=== PATIENT | female | born 1980 | race African-American/Black ===

== ENCOUNTER 2020-05-29 18:52 | Emergency (ER) | payer SELFPAY ==
[2020-05-29 18:57] VITALS: BMI 25.7
--- NOTE | 2020-05-29 18:57 | PDOC ---
Rapid Medical Evaluation Chief Complaint: Psychiatric Time Seen by Provider: 05/29/20 18:53 Medical Evaluation: 05/29/20 18:55 CC: palpitation, weight, increased sleep, and feels slightly depressed but denies any psych hx, hx asthma Exam: tachy, hypertensive Plan: Labs, urine, ekg,
[2020-05-29 19:36] LABS: BASO % 0.7 % (0-2.0); EOS % 2.2 % (0-4.5); HEMATOCRIT 34.2 % (32.4-45.2); HEMOGLOBIN 11.1 GM/dL (10.7-15.3); LYMPH % 25.5 % (8-40); MCH 27.5 pg (25.7-33.7); MCHC 32.4 g/dl (32.0-36.0); MEAN PLT VOLUME 7.6 fl (7.5-11.1); MONO % 11.1 % (3.8-10.2); NEUT % 60.5 % (42.8-82.8); PLATELET COUNT 414 K/MM3 (134-434); RBC 4.02 M/mm3 (3.60-5.2); RDW 19.4 % (11.6-15.6); WHITE BLOOD COUNT 6.5 K/mm3 (4.0-10.0)
[2020-05-29 19:51] LABS: EPI CELLS 35 /uL (0-25.1); HYALINE CASTS 2 /uL (0-3.1); PH,URINE 6.5 (5.0-8.0); URINE APPEARANCE CLOUDY; URINE BACTERIA 715 /uL (0-1359); URINE BILIRUBIN NEGATIVE (NEGATIVE); URINE COLOR RED; URINE GLUCOSE (UA) NEGATIVE (NEGATIVE); URINE KETONE 3+ (NEGATIVE); URINE LEUK ESTERASE TRACE (NEGATIVE); URINE NITRITE NEGATIVE (NEGATIVE); URINE PROTEIN 2+ (NEGATIVE); URINE RBC 1504 /uL (0-23.9); URINE WBC 37 /uL (0-25.8)
[2020-05-29 19:52] LABS: HCG,QUALITATIVE URINE Negative
[2020-05-29 20:01] LABS: COCAINE, UR NEGATIVE ng/ml (CUTOFF=300); METHADONE, UR NEGATIVE ng/ml (CUTOFF=300); OPIATES, URI NEGATIVE ng/ml (CUTOFF=300); PHENCYCLIDINE,URINE NEGATIVE ng/ml (CUTOFF=25); URINE AMPHETAMINES NEGATIVE ng/ml (CUTOFF=500)
[2020-05-29 20:02] LABS: URINE BARBITURATES NEGATIVE ng/ml (CUTOFF=200); URINE BENZODIAZEPINES NEGATIVE ng/ml (CUTOFF=200)
[2020-05-29] MEDS ORDERED: hydrOXYzine PAMOATE 50 MG CAPSULE (FP) PO ONE (20:02)
--- NOTE | 2020-05-29 20:12 | PDOC ---
History of Present Illness - General Chief Complaint: Psychiatric Stated Complaint: PALIPATATIONS Time Seen by Provider: 05/29/20 18:53 History Source: Patient Exam Limitations: Clinical Condition - History of Present Illness Initial Comments: 05/29/20 20:07 Patient with past medical history of asthma brought in by ambulance with complaint of over 1 month history of intermittent panic attacks which happen sporadically of unknown etiology. Patient reported she believed in bed and started having panic attack. Denies any suicidal or homicidal ideation. Denies any family problems or any problem causing her panic attacks. Patient reported panic attack last for over an hour when it happens and resolved. Reported having palpitations, uneasiness with intermittent shortness of breath. Denies numbness or tingling sensation, chest pain, nausea, vomiting. Denies any other symptoms. Denies past psych history or history of anxieties. Is this a multiple visit Asthma Patient?: No Timing/Duration: intermittent, other (1 month) Past History - Medical History Allergies/Adverse Reactions: Allergies Allergy/AdvReac Type Severity Reaction Status Date / Time No Known Allergies Allergy Verified 05/29/20 18:57 Home Medications: Ambulatory Orders hydrOXYzine PAMOATE [Vistaril -] 25 mg PO Q8H PRN #21 capsule 05/29/20 Asthma: Yes COPD: No Other medical history: abnormal pap - Psycho-Social/Smoking History Smoking History: Never smoked - Substance Abuse Hx (Audit-C & DAST Scrn) How often the patient has a drink containing alcohol: Never Score: In Men: 4 or > Positive; In Women: 3 or > Positive: 0 Screen Result (Pos requires Nsg. Audit-10AR): Negative Review of Systems - Review of Systems Able to Perform ROS?: Yes Is the patient limited Kinyarwanda proficient: No Constitutional: No: Chills, Fever, Malaise HEENTM: No: Symptoms Reported, See HPI, Eye Pain, Blurred Vision, Tearing, Recent change in vision, Double Vision, Cataracts, Ear Pain, Ocular Prothesis, Ear Discharge, Nose Pain, Nose Congestion, Tinnitus, Nose Bleeding, Hearing Loss, Throat Pain, Throat Swelling, Mouth Pain, Dental Problems, Difficulty Swallowing, Mouth Swelling, Other Respiratory: No: Symptoms reported, See HPI, Cough, Orthopnea, Shortness of Breath, SOB with Exertion, SOB at Rest, Stridor, Wheezing, Productive cough, Hemoptysis, Other Cardiac (ROS): Yes: Symptoms Reported, See HPI, Palpitations. No: Chest Pain, Edema, Irregular Heart Rate, Lightheadedness, Syncope, Chest Tightness ABD/GI: No: Symptoms Reported, Nausea, Vomiting Musculoskeletal: No: Symptoms Reported Integumentary: No: Symptoms Reported Neurological: No: Symptoms reported, See HPI, Headache, Numbness, Paresthesia, Pre-Existing Deficit, Weakness, Unsteady Gait, Dizziness Psychiatric: Yes: Anxiety, Sleep Pattern Change. No: Frequent Crying, Stressors, Emotional Problems, Mood Swings, Change in Appetite All Other Systems: Reviewed and Negative *Physical Exam - Vital Signs Last Vital Signs Temp Pulse Resp BP Pulse Ox 98.9 F 122 H 18 178/107 H 98 05/29/20 18:53 05/29/20 18:53 05/29/20 18:53 05/29/20 18:53 05/29/20 18:53 - Physical Exam 05/29/20 20:12 GENERAL: Well developed, well nourished. Awake and alert. No acute distress. HEENT: Normocephalic, atraumatic. PERRLA, EOMI. No conjunctival pallor. Sclera are non-icteric. Moist mucous membranes. Oropharynx is clear. NECK: Supple. Full ROM. CARDIOVASCULAR: Regular rate and rhythm. No murmurs, rubs, or gallops. Distal pulses are 2+ and symmetric. PULMONARY: No evidence of respiratory distress. Lungs clear to auscultation bilaterally. No wheezing, rales or rhonchi. ABDOMINAL: Soft. Non-tender. Non-distended. No rebound or guarding. No organomegaly. Normoactive bowel sounds. MUSCULOSKELETAL Normal range of motion at all joints. SKIN: Warm and dry. Normal capillary refill. No rashes. No jaundice. NEUROLOGICAL: Alert, awake, appropriate. Gait is normal without ataxia. PSYCHIATRIC: Cooperative. Good eye contact. Appropriate mood General Appearance: Yes: Nourished, Appropriately Dressed, Other (Anxious). No: Apparent Distress ED Treatment Course - LABORATORY CBC & Chemistry Diagram: 05/29/20 19:19 05/29/20 19:19 - ADDITIONAL ORDERS Additional order review: Laboratory Results 05/29/20 05/29/20 19:19 19:19 Urine Color Red Urine Appearance Cloudy Urine pH 6.5 Ur Specific [place] 1.019 Urine Protein 2+ H Urine Glucose (UA) Negative Urine Ketones 3+ H Urine Blood 3+ H Urine Nitrite Negative Urine Bilirubin Negative Urine Urobilinogen 1.0 Ur Leukocyte Esterase Trace Urine WBC (Auto) 37 Urine RBC (Auto) 1504 Urine Casts (Auto) 2 U Epithel Cells (Auto) 35 Urine Bacteria (Auto) 715 Urine HCG, Qual Negative Opiates Screen Negative Methadone Screen Negative Barbiturate Screen Negative Phencyclidine Screen Negative Ur Amphetamines Screen Negative MDMA (Ecstasy) Screen Negative Benzodiazepines Screen Negative Cocaine Screen Negative U Marijuana (THC) Screen Negative 05/29/20 19:19 RBC 4.02 MCV 85.0 MCHC 32.4 RDW 19.4 H MPV 7.6 Neutrophils % 60.5 Lymphocytes % 25.5 Monocytes % 11.1 H Eosinophils % 2.2 Basophils % 0.7 Medical Decision Making - Medical Decision Making 05/29/20 20:09 Patient with past medical history of asthma brought in by ambulance with complaint of over 1 month history of intermittent panic attacks which happen sporadically of unknown etiology. Patient reported she believed in bed and started having panic attack. Denies any suicidal or homicidal ideation. Denies any family problems or any problem causing her panic attacks. Patient reported panic attack last for over an hour when it happens and resolved. Reported having palpitations, uneasiness with intermittent shortness of breath. Denies numbness or tingling sensation, chest pain, nausea, vomiting. Denies any other symptoms. Denies past psych history or history of anxieties. Exam significant for patient looking anxious with tachycardia and hypertension. Normal cardio and lung exam. Patient afebrile. Normal abdominal exam .normal neuro exam. Patient symptoms likely anxiety related versus less likely cardiogenic symptoms. EKG shows normal sinus rhythm. CBC, chemistry and cardiac profile lab ordered. We will give a dose of Vistaril 50 mg p.o. to help with anxiety. Reassess after labs 05/29/20 21:16 CBC chemistry and cardiac lab with no acute findings. Patient report feeling better with Vistaril with sister on her side. Repeat vitals shows BP so 157/90 which is much improvement from presentation. Patient mildly tachycardic at 102 which is improvement of 117 on presentation. Patient stable for discharge on Vistaril as needed with psychology follow-up. Discharge - Discharge Information Problems reviewed: Yes Clinical Impression/Diagnosis: Acute anxiety Condition: Improved Disposition: HOME - Admission No - Additional Discharge Information Prescriptions: hydrOXYzine PAMOATE [Vistaril -] 25 mg PO Q8H PRN #21 capsule PRN Reason: Anxiety - Follow up/Referral Referrals: Devendra Ann NP [Nurse Practitioner] - - Patient Discharge Instructions Patient Printed Discharge Instructions: DI for Anxiety -- Adult Additional Instructions: Your blood work and EKG was normal. Your symptoms likely caused by anxiety. Take prescribed medication as needed for anxiety. Follow-up with referred to psychologist as soon as possible - Post Discharge Activity
[2020-05-29 20:21] LABS: ALBUMIN 3.9 g/dl (3.4-5.0); ALK PHOS 70 U/L (45-117); ANION GAP 12 MMOL/L (8-16); BLOOD UREA NITROGEN 5.3 mg/dL (7-18); CALCIUM 8.9 mg/dL (8.5-10.1); CHLORIDE 96 mmol/L (98-107); CO2 27 mmol/L (21-32); CREATININE 0.8 mg/dL (0.55-1.3); GLUCOSE,RANDOM 146 mg/dL (74-106); MAGNESIUM 1.8 mg/dL (1.8-2.4); POTASSIUM 3.2 mmol/L (3.5-5.1); SGOT/AST 79 U/L (15-37); SGPT/ALT 36 U/L (13-61); SODIUM 135 mmol/L (136-145); TOT PROT 8.8 g/dl (6.4-8.2)
[2020-05-29 20:24] LABS: BILIRUBIN,TOTAL 0.7 mg/dL (0.2-1)
[2020-05-29 21:26] VITALS: BP 145/98; PULSE 108; TEMP 98.7
--- NOTE | 2020-05-29 21:26 | PDOC ---
*Physical Exam - Vital Signs Last Vital Signs Temp Pulse Resp BP Pulse Ox 98.7 F 108 H 20 145/98 98 05/29/20 21:25 05/29/20 21:25 05/29/20 20:51 05/29/20 21:25 05/29/20 21:25 ED Treatment Course - LABORATORY CBC & Chemistry Diagram: 05/29/20 19:19 05/29/20 19:19 - ADDITIONAL ORDERS Additional order review: Laboratory Results 05/29/20 05/29/20 05/29/20 19:19 19:19 19:19 Sodium 135 L Potassium 3.2 L Chloride 96 L Carbon Dioxide 27 Anion Gap 12 BUN 5.3 L Creatinine 0.8 Est GFR (CKD-EPI)AfAm 107.64 Est GFR (CKD-EPI)NonAf 92.87 Random Glucose 146 H Calcium 8.9 Magnesium 1.8 Total Bilirubin 0.7 AST 79 H ALT 36 Alkaline Phosphatase 70 Creatine Kinase 138 Troponin I < 0.02 Total Protein 8.8 H Albumin 3.9 TSH 0.47 Urine Color Red Urine Appearance Cloudy Urine pH 6.5 Ur Specific [place] 1.019 Urine Protein 2+ H Urine Glucose (UA) Negative Urine Ketones 3+ H Urine Blood 3+ H Urine Nitrite Negative Urine Bilirubin Negative Urine Urobilinogen 1.0 Ur Leukocyte Esterase Trace Urine WBC (Auto) 37 Urine RBC (Auto) 1504 Urine Casts (Auto) 2 U Epithel Cells (Auto) 35 Urine Bacteria (Auto) 715 Urine HCG, Qual Negative Opiates Screen Negative Methadone Screen Negative Barbiturate Screen Negative Phencyclidine Screen Negative Ur Amphetamines Screen Negative MDMA (Ecstasy) Screen Negative Benzodiazepines Screen Negative Cocaine Screen Negative U Marijuana (THC) Screen Negative 05/29/20 19:19 RBC 4.02 MCV 85.0 MCHC 32.4 RDW 19.4 H MPV 7.6 Neutrophils % 60.5 Lymphocytes % 25.5 Monocytes % 11.1 H Eosinophils % 2.2 Basophils % 0.7 - Medications Given in the ED: ED Medications Discontinued Medications Generic Name Dose Route Start Last Admin Trade Name Freq PRN Reason Stop Dose Admin Hydroxyzine Pamoate 50 mg 05/29/20 20:02 05/29/20 20:51 Vistaril - PO 05/29/20 20:03 50 mg ONCE ONE Administration Medical Decision Making - Medical Decision Making 05/29/20 21:26 Case reviewed, agree with assessment and plan Discharge - Discharge Information Problems reviewed: Yes Clinical Impression/Diagnosis: Acute anxiety Condition: Improved Disposition: HOME - Additional Discharge Information Prescriptions: hydrOXYzine PAMOATE [Vistaril -] 25 mg PO Q8H PRN #21 capsule PRN Reason: Anxiety - Follow up/Referral Referrals: Devendra Ann NP [Nurse Practitioner] - - Patient Discharge Instructions Patient Printed Discharge Instructions: DI for Anxiety -- Adult Additional Instructions: Your blood work and EKG was normal. Your symptoms likely caused by anxiety. Take prescribed medication as needed for anxiety. Follow-up with referred to psychologist as soon as possible - Post Discharge Activity
--- NOTE | 2020-05-30 10:45 | EKG ---
Test Reason : Blood Pressure : / mmHG Vent. Rate : 109 BPM Atrial Rate : 109 BPM P-R Int : 130 ms QRS Dur : 074 ms QT Int : 340 ms P-R-T Axes : -03 067 050 degrees QTc Int : 457 ms SINUS TACHYCARDIA NO PREVIOUS ECGS AVAILABLE Confirmed by FELIPE BROWN MD ([id number]) on 05/30/2020 10:44:34 AM Referred By: Confirmed By:FELIPE BROWN MD
== END 2020-05-29 21:30 | disposition home or self-care (01) ==
LOC: JER 18:52
DX: F41.9 Anxiety disorder, unspecified (principal)
CPT/HCPCS: 36415; 80053; 80307; 81003; 82550; 83735; 84443; 84484; 84703; 85025; 93005; 93010; 99284-25

== ENCOUNTER 2022-03-03 15:10 | Inpatient (IN) | payer OTHER ==
[2022-03-03 18:08] VITALS: BMI 23.1
[2022-03-03] MEDS ORDERED: MAG HYDROX/AL HYDROX/SIMETH 30 ML UNIT-DOSE CUP PO PRN (18:30)
[2022-03-03] MEDS ORDERED: MAGNESIUM HYDROX 2400MG/30ML ORAL SUSPENSION 30 ML CUP PO PRN (18:30)
[2022-03-03] MEDS ORDERED: ACETAMINOPHEN 325 MG TABLET (FP) PO PRN ×2 (18:30)
[2022-03-03] MEDS ORDERED: LOPERAMIDE HCL 2 MG CAPSULE PO PRN (18:30)
[2022-03-03] MEDS ORDERED: MAGNESIUM CITRATE 300 ML BOTTLE PO PRN (18:30)
[2022-03-03] MEDS ORDERED: MELATONIN 5 MG TABLETS PO PRN (18:30)
[2022-03-03] MEDS ORDERED: BISMUTH SUBSALICYLATE 524 MG/30 ML PO PRN (18:30)
[2022-03-03] MEDS ORDERED: BENZOCAINE/MENTHOL (CHLORASEPTIC ) LOZENGE MM PRN (18:30)
[2022-03-03] MEDS ORDERED: hydrOXYzine PAMOATE 25 MG CAPSULE (FP) PO PRN (18:30)
[2022-03-03] MEDS ORDERED: IBUPROFEN 400 MG TABLET (FP) PO PRN (18:30)
[2022-03-03] MEDS ORDERED: DICYCLOMINE HCL 10 MG CAPSULE PO PRN (18:30)
[2022-03-03] MEDS ORDERED: ONDANSETRON *ODT* 4 MG TABLET SL PRN (18:30)
[2022-03-03] MEDS ORDERED: METHOCARBAMOL 500 MG TABLET PO PRN (18:30)
[2022-03-03] MEDS ORDERED: THIAMINE HCL 100 MG TABLET (FP) PO SCH (22:00)
[2022-03-04] MEDS ORDERED: ALBUTEROL SO4 HFA INHALER IH PRN (09:35)
[2022-03-04] MEDS ORDERED: PRENATAL VITAMINS W/ FOLIC ACID TABLET (FP) PO SCH (10:00)
[2022-03-04 12:34] VITALS: BP 130/85; PULSE 82; TEMP 98.1
== END 2022-03-04 13:26 | disposition other institution (70) | DRG 775 ==
LOC: YASAS 15:10 → UNDOADMIN 20:26 → Y3N 20:26 → UNDODISIN 03-04 13:26
PROVIDERS: ADMIT Allergy & Immunology; ATTEND Allergy & Immunology
PROC: HZ2ZZZZ Detoxification Services for Substance Abuse Treatment (ICD-10-PCS; principal; 2022-03-03)
DX: F10.20 Alcohol dependence, uncomplicated (principal)
CPT/HCPCS: 81025; 87811; C9803-CS; U0003; U0005

== ENCOUNTER 2022-03-04 13:48 | Inpatient (IN) | payer OTHER ==
[2022-03-04] MEDS ORDERED: MAG HYDROX/AL HYDROX/SIMETH 30 ML UNIT-DOSE CUP PO PRN (14:30)
[2022-03-04] MEDS ORDERED: MAGNESIUM CITRATE 300 ML BOTTLE PO PRN (14:30)
[2022-03-04] MEDS ORDERED: P-EPHED 60MG/TRIPROLIDI 2.5MG TABLET PO PRN (14:30)
[2022-03-04] MEDS ORDERED: NICOTINE 10 MG CARTRIDGE (INHALER) IH PRN (14:30)
[2022-03-04] MEDS ORDERED: LOPERAMIDE HCL 2 MG CAPSULE PO PRN (14:30)
[2022-03-04] MEDS ORDERED: MAGNESIUM HYDROX 2400MG/30ML ORAL SUSPENSION 30 ML CUP PO PRN (14:30)
[2022-03-04] MEDS ORDERED: hydrOXYzine PAMOATE 25 MG CAPSULE (FP) PO SCH (18:00)
[2022-03-04] MEDS: MELATONIN 5 MG TABLETS PO SCH (21:23)
[2022-03-04] MEDS: THIAMINE HCL 100 MG TABLET (FP) PO SCH (21:24)
[2022-03-05] MEDS: ALBUTEROL SO4 HFA INHALER IH PRN ×2 (06:56→21:15)
[2022-03-05] MEDS: NICOTINE 7 MG/24 HOURS TOPICAL PATCH TD SCH (11:12)
[2022-03-05] MEDS: PRENATAL VITAMINS W/ FOLIC ACID TABLET (FP) PO SCH (11:12)
[2022-03-05] MEDS: THIAMINE HCL 100 MG TABLET (FP) PO SCH (21:13)
[2022-03-05] MEDS: MELATONIN 5 MG TABLETS PO SCH (21:13)
[2022-03-06] MEDS: ALBUTEROL SO4 HFA INHALER IH PRN ×3 (07:10→22:14)
[2022-03-06] MEDS: PRENATAL VITAMINS W/ FOLIC ACID TABLET (FP) PO SCH (11:13)
[2022-03-06] MEDS: NICOTINE 7 MG/24 HOURS TOPICAL PATCH TD SCH (11:16)
[2022-03-06] MEDS: MELATONIN 5 MG TABLETS PO SCH (22:01)
[2022-03-06] MEDS: THIAMINE HCL 100 MG TABLET (FP) PO SCH (22:01)
[2022-03-07] MEDS: hydrOXYzine PAMOATE 25 MG CAPSULE (FP) PO PRN ×2 (06:56→10:01)
[2022-03-07] MEDS: IBUPROFEN 400 MG TABLET (FP) PO PRN ×3 (06:57→21:58)
[2022-03-07] MEDS: ALBUTEROL SO4 HFA INHALER IH PRN ×3 (07:28→19:01)
[2022-03-07] MEDS: PRENATAL VITAMINS W/ FOLIC ACID TABLET (FP) PO SCH (10:01)
[2022-03-07] MEDS: NICOTINE 7 MG/24 HOURS TOPICAL PATCH TD SCH (10:01)
[2022-03-07] MEDS: MELATONIN 5 MG TABLETS PO SCH (21:56)
[2022-03-07] MEDS: THIAMINE HCL 100 MG TABLET (FP) PO SCH (21:56)
[2022-03-07] MEDS: guaiFENesin 200 MG/10 ML 10 ML UNIT-DOSE CUPS PO PRN (23:13)
[2022-03-08] MEDS ORDERED: cloNIDine HCL 0.1 MG TABLET PO ONE (06:22)
[2022-03-08] MEDS: ALBUTEROL SO4 HFA INHALER IH PRN ×4 (06:23→21:21)
[2022-03-08] MEDS: IBUPROFEN 400 MG TABLET (FP) PO PRN (06:25)
[2022-03-08] MEDS: guaiFENesin 200 MG/10 ML 10 ML UNIT-DOSE CUPS PO PRN (06:26)
[2022-03-08] MEDS: PRENATAL VITAMINS W/ FOLIC ACID TABLET (FP) PO SCH (10:53)
[2022-03-08] MEDS: NICOTINE 7 MG/24 HOURS TOPICAL PATCH TD SCH (10:53)
[2022-03-08] MEDS: ACETAMINOPHEN 325 MG TABLET (FP) PO PRN ×2 (10:54→21:22)
[2022-03-08] MEDS: BENZOCAINE/MENTHOL (CHLORASEPTIC ) LOZENGE MM PRN ×2 (11:35→23:15)
[2022-03-08 15:41] LABS: HEMOGLOBIN 8.7 GM/dL (10.7-15.3); MCH 25.2 pg (25.7-33.7); MCHC 32.1 g/dl (32.0-36.0); MEAN CELL VOLUME 78.6 fl (80-96); MEAN PLT VOLUME 7.7 fl (7.5-11.1); PLATELET COUNT 599 10^3/uL (134-434); RBC 3.44 M/mm3 (3.60-5.2); RDW 22.7 % (11.6-15.6); WHITE BLOOD COUNT 7.5 K/mm3 (4.0-10.0)
[2022-03-08 15:45] LABS: BLOOD UREA NITROGEN 9.8 mg/dL (7-18); CALCIUM 9.3 mg/dL (8.5-10.1)
[2022-03-08 15:48] LABS: CREATININE 0.9 mg/dL (0.55-1.3)
[2022-03-08 15:50] LABS: BILIRUBIN,TOTAL 0.2 mg/dL (0.2-1)
[2022-03-08 16:39] LABS: HIV INTERPRETATION NEGATIVE (NEGATIVE)
[2022-03-08] MEDS: THIAMINE HCL 100 MG TABLET (FP) PO SCH (21:19)
[2022-03-08] MEDS: hydrOXYzine PAMOATE 25 MG CAPSULE (FP) PO PRN (21:19)
[2022-03-08] MEDS: MELATONIN 5 MG TABLETS PO SCH (21:20)
[2022-03-08] MEDS: cloNIDine HCL 0.1 MG TABLET PO PRN (21:20)
[2022-03-08 22:39] LABS: PH,URINE 5.5 (5.0-8.0); URINE APPEARANCE CLEAR; URINE BILIRUBIN NEGATIVE (NEGATIVE); URINE COLOR YELLOW; URINE GLUCOSE (UA) NEGATIVE (NEGATIVE); URINE KETONE NEGATIVE (NEGATIVE); URINE LEUK ESTERASE NEGATIVE (NEGATIVE); URINE NITRITE NEGATIVE (NEGATIVE); URINE PROTEIN NEGATIVE (NEGATIVE); URINE UROBILINOGEN 0.2 mg/dL (0.2-1.0)
[2022-03-09] MEDS: NICOTINE 7 MG/24 HOURS TOPICAL PATCH TD SCH (11:09)
[2022-03-09] MEDS: PRENATAL VITAMINS W/ FOLIC ACID TABLET (FP) PO SCH (11:09)
[2022-03-09] MEDS: ACETAMINOPHEN 325 MG TABLET (FP) PO PRN ×2 (11:12→21:10)
[2022-03-09] MEDS: FERROUS SO4 325 MG TABLET (FP) PO SCH ×3 (11:12→17:03)
[2022-03-09] MEDS: BENZOCAINE/MENTHOL (CHLORASEPTIC ) LOZENGE MM PRN (11:14)
[2022-03-09] MEDS: guaiFENesin 200 MG/10 ML 10 ML UNIT-DOSE CUPS PO PRN (11:15)
[2022-03-09] MEDS: ALBUTEROL SO4 HFA INHALER IH PRN (19:30)
[2022-03-09] MEDS: THIAMINE HCL 100 MG TABLET (FP) PO SCH (21:08)
[2022-03-09] MEDS: hydrOXYzine PAMOATE 25 MG CAPSULE (FP) PO PRN (21:08)
[2022-03-09] MEDS: MELATONIN 5 MG TABLETS PO SCH (21:08)
[2022-03-10] MEDS: FERROUS SO4 325 MG TABLET (FP) PO SCH ×3 (07:03→18:00)
[2022-03-10] MEDS: ALBUTEROL SO4 HFA INHALER IH PRN ×3 (07:04→18:20)
[2022-03-10] MEDS: PRENATAL VITAMINS W/ FOLIC ACID TABLET (FP) PO SCH (10:39)
[2022-03-10] MEDS: NICOTINE 7 MG/24 HOURS TOPICAL PATCH TD SCH (10:39)
[2022-03-10] MEDS: guaiFENesin 200 MG/10 ML 10 ML UNIT-DOSE CUPS PO PRN (10:40)
[2022-03-10] MEDS: ACETAMINOPHEN 325 MG TABLET (FP) PO PRN ×2 (10:40→21:19)
[2022-03-10] MEDS: BENZOCAINE/MENTHOL (CHLORASEPTIC ) LOZENGE MM PRN (10:41)
[2022-03-10] MEDS: guaiFENesin 600 MG TABLET.ER (FP) PO SCH ×2 (15:28→21:18)
[2022-03-10] MEDS: THIAMINE HCL 100 MG TABLET (FP) PO SCH (21:18)
[2022-03-10] MEDS: MELATONIN 5 MG TABLETS PO SCH (21:19)
[2022-03-11] MEDS: ALBUTEROL SO4 HFA INHALER IH PRN ×4 (06:09→20:01)
[2022-03-11] MEDS: FERROUS SO4 325 MG TABLET (FP) PO SCH ×3 (07:30→17:11)
[2022-03-11] MEDS: PRENATAL VITAMINS W/ FOLIC ACID TABLET (FP) PO SCH (10:59)
[2022-03-11] MEDS: guaiFENesin 600 MG TABLET.ER (FP) PO SCH ×2 (10:59→21:51)
[2022-03-11] MEDS: NICOTINE 7 MG/24 HOURS TOPICAL PATCH TD SCH (10:59)
[2022-03-11] MEDS: ACETAMINOPHEN 325 MG TABLET (FP) PO PRN ×2 (11:00→21:51)
[2022-03-11] MEDS: MELATONIN 5 MG TABLETS PO SCH (21:50)
[2022-03-11] MEDS: THIAMINE HCL 100 MG TABLET (FP) PO SCH (21:51)
[2022-03-11] MEDS: BENZOCAINE/MENTHOL (CHLORASEPTIC ) LOZENGE MM PRN (21:53)
[2022-03-12] MEDS: cloNIDine HCL 0.1 MG TABLET PO PRN ×2 (06:35→21:03)
[2022-03-12] MEDS: FERROUS SO4 325 MG TABLET (FP) PO SCH ×3 (07:02→17:11)
[2022-03-12] MEDS: ALBUTEROL SO4 HFA INHALER IH PRN ×3 (08:10→19:10)
[2022-03-12] MEDS: guaiFENesin 600 MG TABLET.ER (FP) PO SCH ×2 (09:57→21:03)
[2022-03-12] MEDS: NICOTINE 7 MG/24 HOURS TOPICAL PATCH TD SCH (09:58)
[2022-03-12] MEDS: ACETAMINOPHEN 325 MG TABLET (FP) PO PRN (10:00)
[2022-03-12] MEDS: PRENATAL VITAMINS W/ FOLIC ACID TABLET (FP) PO SCH (11:14)
[2022-03-12] MEDS: BENZOCAINE/MENTHOL (CHLORASEPTIC ) LOZENGE MM PRN ×2 (17:12→23:48)
[2022-03-12] MEDS: THIAMINE HCL 100 MG TABLET (FP) PO SCH (21:02)
[2022-03-12] MEDS: MELATONIN 5 MG TABLETS PO SCH (21:05)
[2022-03-13] MEDS: FERROUS SO4 325 MG TABLET (FP) PO SCH ×3 (07:08→17:03)
[2022-03-13] MEDS: PRENATAL VITAMINS W/ FOLIC ACID TABLET (FP) PO SCH (11:14)
[2022-03-13] MEDS: NICOTINE 7 MG/24 HOURS TOPICAL PATCH TD SCH (11:14)
[2022-03-13] MEDS: ACETAMINOPHEN 325 MG TABLET (FP) PO PRN ×2 (11:15→22:15)
[2022-03-13] MEDS: guaiFENesin 600 MG TABLET.ER (FP) PO SCH ×2 (11:15→22:14)
[2022-03-13] MEDS: BENZOCAINE/MENTHOL (CHLORASEPTIC ) LOZENGE MM PRN ×2 (11:17→22:16)
[2022-03-13] MEDS: ALBUTEROL SO4 HFA INHALER IH PRN (12:12)
[2022-03-13] MEDS: MELATONIN 5 MG TABLETS PO SCH (22:13)
[2022-03-13] MEDS: THIAMINE HCL 100 MG TABLET (FP) PO SCH (22:13)
[2022-03-14] MEDS: ALBUTEROL SO4 HFA INHALER IH PRN ×3 (03:52→22:17)
[2022-03-14] MEDS: FERROUS SO4 325 MG TABLET (FP) PO SCH ×3 (06:59→17:37)
[2022-03-14] MEDS: PRENATAL VITAMINS W/ FOLIC ACID TABLET (FP) PO SCH (10:59)
[2022-03-14] MEDS: ACETAMINOPHEN 325 MG TABLET (FP) PO PRN (11:00)
[2022-03-14] MEDS: guaiFENesin 600 MG TABLET.ER (FP) PO SCH ×2 (11:01→22:14)
[2022-03-14] MEDS: BENZOCAINE/MENTHOL (CHLORASEPTIC ) LOZENGE MM PRN (11:02)
[2022-03-14] MEDS: NICOTINE 7 MG/24 HOURS TOPICAL PATCH TD SCH (11:02)
[2022-03-14] MEDS: MELATONIN 5 MG TABLETS PO SCH (22:13)
[2022-03-14] MEDS: THIAMINE HCL 100 MG TABLET (FP) PO SCH (22:14)
[2022-03-15] MEDS: ALBUTEROL SO4 HFA INHALER IH PRN ×3 (04:03→18:00)
[2022-03-15] MEDS: cloNIDine HCL 0.1 MG TABLET PO PRN (07:47)
[2022-03-15] MEDS: FERROUS SO4 325 MG TABLET (FP) PO SCH ×3 (07:47→17:10)
[2022-03-15] MEDS: ACETAMINOPHEN 325 MG TABLET (FP) PO PRN ×3 (07:48→21:19)
[2022-03-15] MEDS: guaiFENesin 600 MG TABLET.ER (FP) PO SCH ×2 (10:48→21:18)
[2022-03-15] MEDS: PRENATAL VITAMINS W/ FOLIC ACID TABLET (FP) PO SCH (10:49)
[2022-03-15] MEDS: NICOTINE 7 MG/24 HOURS TOPICAL PATCH TD SCH (10:49)
[2022-03-15] MEDS ORDERED: COLLOIDAL OATMEAL 1 BAR EACH TP PRN (10:56)
[2022-03-15] MEDS: MELATONIN 5 MG TABLETS PO SCH (21:17)
[2022-03-15] MEDS: THIAMINE HCL 100 MG TABLET (FP) PO SCH (21:20)
[2022-03-15] MEDS: BENZOCAINE/MENTHOL (CHLORASEPTIC ) LOZENGE MM PRN (21:22)
[2022-03-16] MEDS: ALBUTEROL SO4 HFA INHALER IH PRN ×3 (07:02→19:00)
[2022-03-16] MEDS: FERROUS SO4 325 MG TABLET (FP) PO SCH ×3 (07:04→17:01)
[2022-03-16] MEDS: NICOTINE 7 MG/24 HOURS TOPICAL PATCH TD SCH (10:47)
[2022-03-16] MEDS: PRENATAL VITAMINS W/ FOLIC ACID TABLET (FP) PO SCH (10:47)
[2022-03-16] MEDS: guaiFENesin 600 MG TABLET.ER (FP) PO SCH ×2 (10:47→21:04)
[2022-03-16] MEDS: ACETAMINOPHEN 325 MG TABLET (FP) PO PRN (10:48)
[2022-03-16] MEDS: BENZOCAINE/MENTHOL (CHLORASEPTIC ) LOZENGE MM PRN (10:50)
[2022-03-16] MEDS: MELATONIN 5 MG TABLETS PO SCH (21:04)
[2022-03-16] MEDS: THIAMINE HCL 100 MG TABLET (FP) PO SCH (21:04)
[2022-03-16] MEDS: hydrOXYzine PAMOATE 25 MG CAPSULE (FP) PO PRN (21:05)
[2022-03-17] MEDS: cloNIDine HCL 0.1 MG TABLET PO PRN (06:12)
[2022-03-17] MEDS: IBUPROFEN 400 MG TABLET (FP) PO PRN (06:13)
[2022-03-17] MEDS: FERROUS SO4 325 MG TABLET (FP) PO SCH ×3 (08:35→17:09)
[2022-03-17] MEDS: PRENATAL VITAMINS W/ FOLIC ACID TABLET (FP) PO SCH (10:35)
[2022-03-17] MEDS: guaiFENesin 600 MG TABLET.ER (FP) PO SCH ×2 (10:35→21:30)
[2022-03-17] MEDS: ACETAMINOPHEN 325 MG TABLET (FP) PO PRN ×3 (10:36→21:31)
[2022-03-17] MEDS: BENZOCAINE/MENTHOL (CHLORASEPTIC ) LOZENGE MM PRN (10:36)
[2022-03-17] MEDS: DOCUSATE SODIUM 100 MG CAPSULE (FP) PO SCH ×2 (13:51→21:30)
[2022-03-17] MEDS: MELATONIN 5 MG TABLETS PO SCH (21:29)
[2022-03-17] MEDS: THIAMINE HCL 100 MG TABLET (FP) PO SCH (21:29)
[2022-03-17] MEDS: ALBUTEROL SO4 HFA INHALER IH PRN (23:55)
[2022-03-18] MEDS: DOCUSATE SODIUM 100 MG CAPSULE (FP) PO SCH ×3 (07:53→21:10)
[2022-03-18] MEDS: FERROUS SO4 325 MG TABLET (FP) PO SCH ×3 (11:13→17:18)
[2022-03-18] MEDS: guaiFENesin 600 MG TABLET.ER (FP) PO SCH ×2 (11:13→21:10)
[2022-03-18] MEDS: PRENATAL VITAMINS W/ FOLIC ACID TABLET (FP) PO SCH (11:13)
[2022-03-18] MEDS: ACETAMINOPHEN 325 MG TABLET (FP) PO PRN (11:13)
[2022-03-18] MEDS: ALBUTEROL SO4 HFA INHALER IH PRN (16:06)
[2022-03-18] MEDS: THIAMINE HCL 100 MG TABLET (FP) PO SCH (21:10)
[2022-03-18] MEDS: MELATONIN 5 MG TABLETS PO SCH (21:10)
[2022-03-19] MEDS: DOCUSATE SODIUM 100 MG CAPSULE (FP) PO SCH ×4 (06:43→21:48)
[2022-03-19] MEDS: FERROUS SO4 325 MG TABLET (FP) PO SCH ×3 (07:01→17:27)
[2022-03-19] MEDS: PRENATAL VITAMINS W/ FOLIC ACID TABLET (FP) PO SCH (10:35)
[2022-03-19] MEDS: BENZOCAINE/MENTHOL (CHLORASEPTIC ) LOZENGE MM PRN ×2 (10:36→21:50)
[2022-03-19] MEDS: guaiFENesin 600 MG TABLET.ER (FP) PO SCH ×2 (10:37→21:50)
[2022-03-19] MEDS: ACETAMINOPHEN 325 MG TABLET (FP) PO PRN (21:48)
[2022-03-19] MEDS: MELATONIN 5 MG TABLETS PO SCH (21:48)
[2022-03-19] MEDS: THIAMINE HCL 100 MG TABLET (FP) PO SCH (21:48)
[2022-03-19] MEDS: hydrOXYzine PAMOATE 25 MG CAPSULE (FP) PO PRN (21:48)
[2022-03-20] MEDS: DOCUSATE SODIUM 100 MG CAPSULE (FP) PO SCH ×3 (05:59→22:02)
[2022-03-20] MEDS: FERROUS SO4 325 MG TABLET (FP) PO SCH ×3 (08:22→17:47)
[2022-03-20] MEDS: PRENATAL VITAMINS W/ FOLIC ACID TABLET (FP) PO SCH (10:45)
[2022-03-20] MEDS: guaiFENesin 600 MG TABLET.ER (FP) PO SCH ×2 (10:45→22:02)
[2022-03-20 11:47] LABS: MCH 25.7 pg (25.7-33.7); MCHC 31.4 g/dl (32.0-36.0); MEAN PLT VOLUME 7.9 fl (7.5-11.1); PLATELET COUNT 478 10^3/uL (134-434); RDW 26.2 % (11.6-15.6); WHITE BLOOD COUNT 5.5 K/mm3 (4.0-10.0)
[2022-03-20] MEDS: ACETAMINOPHEN 325 MG TABLET (FP) PO PRN (17:47)
[2022-03-20] MEDS: MELATONIN 5 MG TABLETS PO SCH (22:02)
[2022-03-20] MEDS: THIAMINE HCL 100 MG TABLET (FP) PO SCH (22:02)
[2022-03-20] MEDS: hydrOXYzine PAMOATE 25 MG CAPSULE (FP) PO PRN (22:02)
[2022-03-21] MEDS: FERROUS SO4 325 MG TABLET (FP) PO SCH ×3 (09:26→18:32)
[2022-03-21] MEDS: DOCUSATE SODIUM 100 MG CAPSULE (FP) PO SCH ×3 (09:26→21:54)
[2022-03-21] MEDS: guaiFENesin 600 MG TABLET.ER (FP) PO SCH ×2 (10:56→21:54)
[2022-03-21] MEDS: PRENATAL VITAMINS W/ FOLIC ACID TABLET (FP) PO SCH (10:56)
[2022-03-21] MEDS: THIAMINE HCL 100 MG TABLET (FP) PO SCH (21:54)
[2022-03-21] MEDS: MELATONIN 5 MG TABLETS PO SCH (21:54)
[2022-03-21] MEDS: hydrOXYzine PAMOATE 25 MG CAPSULE (FP) PO PRN (21:55)
[2022-03-21] MEDS: BENZOCAINE/MENTHOL (CHLORASEPTIC ) LOZENGE MM PRN (21:56)
[2022-03-22] MEDS: FERROUS SO4 325 MG TABLET (FP) PO SCH ×3 (07:17→17:23)
[2022-03-22] MEDS: DOCUSATE SODIUM 100 MG CAPSULE (FP) PO SCH ×3 (07:17→21:17)
[2022-03-22] MEDS: PRENATAL VITAMINS W/ FOLIC ACID TABLET (FP) PO SCH (10:39)
[2022-03-22] MEDS: ACETAMINOPHEN 325 MG TABLET (FP) PO PRN (10:40)
[2022-03-22] MEDS: guaiFENesin 600 MG TABLET.ER (FP) PO SCH ×2 (10:40→21:18)
[2022-03-22] MEDS: MELATONIN 5 MG TABLETS PO SCH (21:17)
[2022-03-22] MEDS: THIAMINE HCL 100 MG TABLET (FP) PO SCH (21:18)
[2022-03-22] MEDS: hydrOXYzine PAMOATE 25 MG CAPSULE (FP) PO PRN (21:19)
[2022-03-23] MEDS: DOCUSATE SODIUM 100 MG CAPSULE (FP) PO SCH ×3 (07:53→21:03)
[2022-03-23] MEDS: FERROUS SO4 325 MG TABLET (FP) PO SCH ×3 (07:55→17:33)
[2022-03-23] MEDS: PRENATAL VITAMINS W/ FOLIC ACID TABLET (FP) PO SCH (11:29)
[2022-03-23] MEDS: guaiFENesin 600 MG TABLET.ER (FP) PO SCH ×2 (11:29→21:03)
[2022-03-23] MEDS: hydrOXYzine PAMOATE 25 MG CAPSULE (FP) PO PRN (21:03)
[2022-03-23] MEDS: THIAMINE HCL 100 MG TABLET (FP) PO SCH (21:03)
[2022-03-23] MEDS: MELATONIN 5 MG TABLETS PO SCH (21:03)
[2022-03-23] MEDS: ACETAMINOPHEN 325 MG TABLET (FP) PO PRN (21:04)
[2022-03-24] MEDS: FERROUS SO4 325 MG TABLET (FP) PO SCH ×3 (07:07→17:10)
[2022-03-24] MEDS: DOCUSATE SODIUM 100 MG CAPSULE (FP) PO SCH ×3 (07:07→21:21)
[2022-03-24] MEDS: PRENATAL VITAMINS W/ FOLIC ACID TABLET (FP) PO SCH (10:55)
[2022-03-24] MEDS: guaiFENesin 600 MG TABLET.ER (FP) PO SCH ×2 (10:56→21:21)
[2022-03-24] MEDS: ACETAMINOPHEN 325 MG TABLET (FP) PO PRN ×2 (10:56→17:10)
[2022-03-24] MEDS: ALBUTEROL SO4 HFA INHALER IH PRN (12:20)
[2022-03-24] MEDS: THIAMINE HCL 100 MG TABLET (FP) PO SCH (21:21)
[2022-03-24] MEDS: MELATONIN 5 MG TABLETS PO SCH (21:21)
[2022-03-24] MEDS: hydrOXYzine PAMOATE 25 MG CAPSULE (FP) PO PRN (21:22)
[2022-03-25] MEDS: DOCUSATE SODIUM 100 MG CAPSULE (FP) PO SCH (06:37)
[2022-03-25] MEDS: cloNIDine HCL 0.1 MG TABLET PO PRN (06:38)
[2022-03-25] MEDS: ACETAMINOPHEN 325 MG TABLET (FP) PO PRN (06:39)
[2022-03-25] MEDS: FERROUS SO4 325 MG TABLET (FP) PO SCH (07:02)
[2022-03-25 07:19] VITALS: BP 137/91; PULSE 87; TEMP 97.5
[2022-03-25] MEDS: PRENATAL VITAMINS W/ FOLIC ACID TABLET (FP) PO SCH (09:52)
[2022-03-25] MEDS: guaiFENesin 600 MG TABLET.ER (FP) PO SCH (09:54)
== END 2022-03-25 10:15 | disposition home or self-care (01) | DRG 772 ==
LOC: YASAS 13:48 → Y5N 13:49
PROVIDERS: ADMIT Allergy & Immunology; ATTEND Allergy & Immunology
PROC: HZ42ZZZ Group Counseling for Substance Abuse Treatment, Cognitive-Behavioral (ICD-10-PCS; principal; 2022-03-04)
DX: F10.20 Alcohol dependence, uncomplicated (principal); F41.9 Anxiety disorder, unspecified; D50.9 Iron deficiency anemia, unspecified; J45.909 Unspecified asthma, uncomplicated; R03.0 Elevated blood-pressure reading, without diagnosis of hypertension; R05.9 Cough, unspecified; Z87.09 Personal history of other diseases of the respiratory system; Z91.018 Allergy to other foods
CPT/HCPCS: 36415; 80053; 81003; 82962; 83036; 85027; 86780; 87389; 93005; 93010; C9803-CS; J0735; U0003; U0005